=== PATIENT | male | born 1975 | race Caucasian/White ===

== ENCOUNTER 2019-01-24 11:17 | Emergency (ER) | payer MEDICAID, SELFPAY ==
[2019-01-24 11:17] VITALS: BP 141/96; PULSE 69; RESP 16; TEMP 36.6; O2SAT 100; BMI 23.5
--- NOTE | 2019-01-24 12:54 | ED.VISSUMM ---
- ER Visit Summary Date of Service: 01/24/19 Chief Complaint: Medication refill History of Present Illness: The patient is a 43 M with seizures ran out of Lamictal and Keppra he has no symptoms he cannot get in touch with his neurologist and since it is Physical Examination: I will refill his medication he is to call his neurologist tomorrow Impression:Medication refill This note was generated with [employer] dictation software. It may contain incorrect words, spelling, and punctuation that were not noted in review of the chart prior to signing ED Disposition - Plan for ED Patient: Disposition: Home or Assisted Living Prescriptions: Lamotrigine [Lamictal] 25 mg PO DAILY #10 tab levETIRAcetam tablet [Keppra tablet] 500 mg PO BID #20 tab Referrals: Jennifer Bonilla NP-C [Primary Care Provider] - 2 Days () Additional Instructions: Call your neurologist tomorrow
--- NOTE | 2019-01-24 12:58 | ED.DCSUM_ITS ---
- ER Visit Summary Date of Service: 01/24/19 Chief Complaint: Medication refill History of Present Illness: The patient is a 43 M with seizures ran out of Lamictal and Keppra he has no symptoms he cannot get in touch with his neurologist and since it is Physical Examination: I will refill his medication he is to call his neurologist tomorrow Impression:Medication refill This note was generated with [employer] dictation software. It may contain incorrect words, spelling, and punctuation that were not noted in review of the chart prior to signing ED Disposition - Plan for ED Patient: Disposition: Home or Assisted Living Prescriptions: Lamotrigine [Lamictal] 25 mg PO DAILY #10 tab levETIRAcetam tablet [Keppra tablet] 500 mg PO BID #20 tab Referrals: Jennifer Bonilla NP-C [Primary Care Provider] - 2 Days () Additional Instructions: Call your neurologist tomorrow
[2019-01-24 13:09] VITALS: RESP 15
== END 2019-01-24 13:10 | disposition home or self-care (01) ==
PROVIDERS: Emergency Provider Emergency Medicine; Family Provider Nurse Practitioner Adult Health; PCP Nurse Practitioner Adult Health
DX: Z76.0 Encounter for issue of repeat prescription (principal); G40.909 Epilepsy, unspecified, not intractable, without status epilepticus
CPT/HCPCS: 99282

== ENCOUNTER 2020-05-30 15:20 | Emergency (ER) | payer MEDICARE, MEDICAID, SELFPAY ==
[2020-05-30 15:20] VITALS: BP 131/92; PULSE 76; RESP 16; TEMP 36.4; O2SAT 100; BMI 22.7
--- NOTE | 2020-05-30 15:32 | VDLE_ITS ---
Reason For Study: Swelling Procedure LEFT Exam performed portable in ED. GSV is normal. A preliminary report was called and/or faxed CFV is compressible, spontaneous, phasic, to Anil. competent, and demonstrates normal augmentation. FV is compressible, spontaneous, phasic, competent and demonstrates normal augmentation. POP V is compressible, spontaneous, phasic, competent and demonstrates normal augmentation. T/P Trunk is compressible. PTV is compressible. LT PerV is compressible. Interpretation Summary There is no evidence of left lower extremity deep vein thrombosis. Left great saphenous vein appears patent and compressible segmentally. Ordering Physician: Jose Ma Referring Physician: Jennifer Bonilla Performed By: Raven Thapa RVT
--- NOTE | 2020-05-30 16:07 | ED.VIS.GEN ---
History of Present Illness Chief Complaint: Lower Extremity Injury Narrative: 44-year-old male presenting with left leg bruising and swelling. He is postop day #6 for partial knee replacement. He states he injured himself walking his dog which caused the injury to the knee in the first place. He states that he called his doctor's office for an evaluation and they sent him to the emergency room for an ultrasound. Patient does not have any significant pain. His wounds have been clean and dry. Not have any numbness or tingling. Past Medical History - Allergies and Home Meds Allergies/Adverse Reactions: Allergies aspirin Allergy (Verified 05/30/20 15:21) Unknown phenytoin [From Dilantin] Allergy (Verified 05/30/20 15:21) GUMS SWELL UP Primary Care Physician: Jennifer Bonilla NP, COMPUTER SYSTEMS TECHNOLOGY INSTRUCTOR-C [Primary Care Provider] - Past Medical History: - - Anxiety, depression Surgical History: - - Partial knee replacement Lives: Spouse/ Significant Other Smoking Status: Current every day smoker Alcohol: Occasional Drugs: None Review of Systems General: Denies: Chills, Fever, Sweats Eyes: Denies: Visual changes - bilaterally, Diplopia ENT: Denies: Rhinorrhea, Sore throat Cardiovascular: Denies: Chest pain, Palpitations Respiratory: Denies: Dyspnea, Cough, Dyspnea on exertion Gastrointestinal: Denies: Abdominal pain, Nausea, Vomiting, Diarrhea, Melena, Hematochezia Skin: Reports: - - Lower extremity bruising and dependent portions.. Denies: Rash, Abscess Neurological: Denies: Headache, Weakness Physical Exam Vital Signs/Narrative: Vital Signs Temp Pulse Resp BP Pulse Ox 05/30/20 15:20 97.5 F L 76 16 131/92 H 100 Inital Vital Signs reviewed: Yes General: Well nourished, No Acute Distress Head: Normocephalic, Atraumatic Eyes: Perrl, EOMI Neck: Supple, Nontender Cardiovascular: Regular rate, Regular rhythm Abdomen: Soft, Nontender Extremities: - - Swelling to the left lower extremity with bruising and dependent portions of the lower leg and posterior knee. Minimally tender to palpation. Pedal pulses 2+. Wounds are clean dry and intact. No pain with short arc range of motion. Skin: - - Described under extremities Neurological: Alert, Oriented x3 Psychological: Normal affect, Normal Mood Diagnostic/Tx/Re-eval - Medical Decision Making Patient presents with leg swelling and bruising. He is neurovascularly intact. He does not have any sign of infection and his wounds are clean and dry. DVT study performed shows no DVT. Patient given instruction to follow-up with his surgeon. He is given return precautions. Patient stable for discharge at this time. Impression: 1. Postop wound check ED Disposition - Plan for ED Patient: Disposition: Home or Assisted Living Instructions: Post-Op Tips: Knee Referrals: Jennifer Bonilla NP, COMPUTER SYSTEMS TECHNOLOGY INSTRUCTOR-C [Primary Care Provider] -
== END 2020-05-30 16:47 | disposition home or self-care (01) ==
LOC: ED 16:15
PROVIDERS: Emergency Provider Student in an Organized Health Care Education/Training Program; PCP Nurse Practitioner Adult Health
DX: Z48.00 Encounter for change or removal of nonsurgical wound dressing (principal); F17.200 Nicotine dependence, unspecified, uncomplicated; F33.9 Major depressive disorder, recurrent, unspecified
CPT/HCPCS: 93971; 99282

== ENCOUNTER 2020-09-17 08:18 | Emergency (ER) | payer MEDICARE, MEDICAID, SELFPAY ==
[2020-09-17 08:19] VITALS: BP 134/87; PULSE 82; RESP 16; TEMP 36.1; O2SAT 97; BMI 22.0
--- NOTE | 2020-09-17 08:45 | RAD_ITS ---
STUDY: X-RAY - LEFT ANKLE REASON FOR EXAM: Male, 44 years old. INJURY X 6 DAYS. STILL HAVING PAIN LATERAL SIDE TECHNIQUE: 3 view(s) of the ankle. COMPARISON: None. FINDINGS: Normal visualized distal tibia and fibula. Normal medial and lateral malleoli. Normal tibiotalar articulation and ankle mortise. Normal visualized talus and calcaneus. The visualized subtalar, talonavicular, calcaneocuboid and tarsal articulations are normal. The soft tissue structures are unremarkable. RAD/Ankle min 3 Views IMPRESSION: Normal x-ray examination of the ankle. Electronically Signed: Zackary Segovia MD at 9:07 EST , Service support ,
--- NOTE | 2020-09-17 09:34 | ED.DCSUM_ITS ---
History of Present Illness Chief Complaint: Lower Extremity Injury Narrative: Patient presenting secondary to an ankle injury. Patient states that he twisted his ankle a week ago and it still hurts. Pain is worse with ambulation as well as range of motion. Pain is aching and mild. Patient denies any other injuries. Review of systems otherwise negative. Past Medical History - Allergies and Home Meds Allergies/Adverse Reactions: Allergies aspirin Allergy (Verified 09/17/20 08:19) Unknown phenytoin [From Dilantin] Allergy (Verified 09/17/20 08:19) GUMS SWELL UP Primary Care Physician: Jennifer Bonilla [employer], [employer] [Primary Care Provider] - Prior records reviewed: Yes Surgical History: - - Partial knee replacement Smoking Status: Former smoker Alcohol: None Drugs: None Review of Systems All systems negative except as indicated General: Denies: Chills, Fever, Sweats Eyes: Denies: Visual changes - bilaterally, Diplopia ENT: Denies: Rhinorrhea, Sore throat Cardiovascular: Denies: Chest pain, Palpitations Respiratory: Denies: Dyspnea, Cough, Dyspnea on exertion Gastrointestinal: Denies: Abdominal pain, Nausea, Vomiting, Diarrhea, Melena, Hematochezia Genitourinary: Denies: Dysuria, Hematuria, Frequency Musculoskeletal: Reports: Extremity Pain Skin: Denies: Rash, Wounds Neurological: Denies: Headache, Weakness, Numbness Physical Exam Vital Signs/Narrative: Vital Signs Temp Pulse Resp BP Pulse Ox 09/17/20 08:19 96.9 F L 82 16 134/87 H 97 - Extremity Exam Left Ankle: - - Pain on palpation of the lateral malleolus, minimal swelling noted. Normal range of motion. Normal sensation and distal pulses. No pain over the fifth metatarsal head, no pain of the proximal fibular head. General: Well nourished, Well developed Head: Normocephalic, Atraumatic Eyes: Perrl, EOMI ENT: No Trauma, Moist Mucous Membranes Neck: Nontender, Full ROM Cardiovascular: Regular rate, Regular rhythm, No murmurs Respiratory: No distress, CTA bilaterally, Chest nontender Skin: Normal color, No rash Neurological: Alert, Oriented x3, Cranial nerves II-XII grossly intact, Normal Strength, Normal Sensation Diagnostic/Tx/Re-eval Clinical Impression(s) from Imaging Studies Ankle X-Ray 09/17/20 08:45 IMPRESSION: Normal x-ray examination of the ankle. Electronically Signed: Zackary Segovia MD at 9:07 EST , Service support , - Medical Decision Making Patient presented with an ankle injury. 3 view of the left ankle by my personal review as well as radiology is negative for acute fracture. Patient was recommended conservative management and exercises for an ankle sprain. ED Disposition - Plan for ED Patient: Disposition: Home or Assisted Living Diagnosis: Left ankle sprain Instructions: ED Sprain Ankle W X Ray Referrals: Jennifer Bonilla NP, [employer] [Primary Care Provider] - As Needed
[2020-09-17 10:19] VITALS: PULSE 84; RESP 16; O2SAT 97
== END 2020-09-17 10:21 | disposition home or self-care (01) ==
PROVIDERS: Emergency Provider Emergency Medicine; PCP Nurse Practitioner Adult Health
DX: S93.402A Sprain of unspecified ligament of left ankle, initial encounter (principal); X50.1XXA Overexertion from prolonged static or awkward postures, initial encounter; Y92.9 Unspecified place or not applicable; Y99.9 Unspecified external cause status; Z87.891 Personal history of nicotine dependence; Z88.6 Allergy status to analgesic agent
CPT/HCPCS: 73610; 99282

== ENCOUNTER 2021-11-12 14:16 | Emergency (ER) | payer MEDICARE, MEDICAID, SELFPAY ==
[2021-11-12 14:17] VITALS: BP 136/87; PULSE 81; RESP 16; TEMP 36.4; O2SAT 97; BMI 21.6
--- NOTE | 2021-11-12 15:21 | EX.ED.DYSGE1 ---
HPI History of Present Illness Chief Complaint: Rash Informant: patient Onset/Context/Timing Onset: Month(s) (3) Context: Gradual Onset Timing: Continuous Quality: Itching Location: Lower jaw Worsened by: Nothing Relieved by: Shower Narrative Narrative: Patient presents with a rash to his lower jaw that has been constant for the past 3 months. Patient states it came on gradually. Patient states it began after he was wrestling with his brother who has a similar rash. Patient admits to some itching to the area. Patient states it is better whenever he takes a shower. Patient denies any difficulty breathing or difficulty swallowing. Patient denies any discharge or drainage. Patient denies any fevers or chills. [facility] Medical History (Updated 11/12/21 @ 15:[address] Leroy Moore DO) Seizure disorder Home Medications amantadine HCl 100 mg PO BID 10/02/16 [History Last Taken 03/09/17] aripiprazole [Abilify] 15 mg PO DAILY 10/02/16 [History Last Taken 03/09/17] lamotrigine 50 mg PO BID 10/02/16 [History Last Taken 03/09/17] levetiracetam 500 mg PO BID 10/02/16 [History Last Taken 03/09/17] trazodone 150 mg PO QHS PRN 10/02/16 [History Last Taken 03/08/17] sertraline 100 mg PO DAILY 03/09/17 [History Last Taken 03/09/17] quetiapine 50 mg PO QHS 05/30/20 [History Last Taken Unknown] clindamycin phosphate 1 applic TOPICAL BID #30 g 11/12/21 [Rx Last Taken Unknown] Allergy/AdvReac Type Severity Reaction Status Date / Time aspirin Allergy Unknown Verified 11/12/21 14:17 phenytoin [From Dilantin] Allergy GUMS Verified 11/12/21 14:17 SWELL UP Surgical History no surgical history no surgical history Social History Smoking Status: Current every day smoker tobacco type: cigarettes ROS ROS ED Constitutional Constitutional ED: Denies chills or fever(s) Eyes Eyes: Denies blurry vision or change in vision ENT ENT ED: Denies rhinorrhea or sore throat Cardiovascular Cardiovascular: Denies chest pain or palpitations Respiratory/Chest Respiratory/Chest: Denies cough or dyspnea Gastrointestinal Gastrointestinal: Denies nausea or vomiting Genitourinary Genitourinary ED: Denies dysuria or hematuria Musculoskeletal Musculoskeletal: Denies back pain or neck pain Integumentary Reports rash; Denies abscess Neurologic Neurologic: Reports headache(s); Denies weakness Allergic/Immunologic Allergic/Immunologic ED: Denies mouth swelling or urticaria EXAM Physical Exam Const Vital Signs: 11/12/21 14:17 Temperature 97.6 F L Temperature Source Temporal Pulse Rate 81 Respiratory Rate 16 Blood Pressure 136/87 H Blood Pressure Mean 103 Pulse Ox 97 Oxygen Delivery Method Room Air Positive well nourished and well developed General Appearance ED: well developed and NAD HEENT Reports moist mucous membranes Neck supple and no JVD Resp normal respiratory effort and clear to auscultation bilaterally Cardio regular rate, regular rhythm and no murmurs Neuro oriented x3, CN's II-XII intact bilaterally and no sensory deficits noted Sensorium / Orientation: alert Motor Exam: strength 5/5 throughout Psych mental status grossly normal Skin Skin Narrative: There is a small erythematous rash along the lower jaw. It crosses the midline. There are small pustules noted. There is mild erythema. There is no tenderness. There is no active discharge or drainage noted. MDM MDM MDM Narrative Medical decision making narrative: Patient was advised that this rash looks like a folliculitis rash. Given a prescription for clindamycin gel. Patient was instructed to follow-up with a primary care physician in 5 to 7 days. Patient understood and was agreeable with the plan. All questions were answered. Discharge Plan Triage Chief Complaint: Rash ED Provider: Leroy Moore Dx/Rx/DC Orders Clinical Impression: Folliculitis Instructions: ED Folliculitis Prescriptions: New clindamycin phosphate 1 % gel 1 applic topical BID Qty: 30 RF: 0 No Action levetiracetam 500 MG tablet 500 mg PO BID RF: 0 amantadine HCl 100 MG capsule 100 mg PO BID RF: 0 trazodone 100 MG tablet 150 mg PO QHS PRN (Reason: Insomnia) RF: 0 aripiprazole [Abilify] 15 MG tablet 15 mg PO DAILY RF: 0 lamotrigine 50 MG tablet,disintegrating 50 mg PO BID RF: 0 sertraline 100 MG tablet 100 mg PO DAILY RF: 0 quetiapine 50 MG tablet 50 mg PO QHS RF: 0 Primary Care Provider: Jennifer Bonilla NP Referrals: Jennifer Watkins [NON-STAFF] - 5-7 Days Jennifer Bonilla NP, [employer] APPRAISER-C [Primary Care Provider] - Disposition Disposition: Home, Self Care
--- NOTE | 2021-11-12 15:30 | CM.ED ---
Social Work Consult: Resources Referral source: Dr. Moore. Met with patient in room. Introduced self and director of social media marketing role. Patient agreeable to speak with this director of social media marketing. Patient reports to currently be going through a divorce and to now be homeless. Patient states to be staying at the [facility] and they are helping me with housing. Patient reports substance abuse history of meth and to currently smoke tobacco and use Marijuana. Patient states to have recently lost my kids in last 2020 due to meth use and not getting the kids medically taken care of. Patient reports that [facility] have been working with patient. Patient denies mental health history of suicidal thoughts, plans, intents. Patient states to be discouraged with current situation. Patient states desire to get out of town and stay with patient mother but still working on transportation. Patient reports to be on disability due to seizures. Patient states to be able to have some money in November. This director of social media marketing provided support and active listening. This director of social media marketing encouraged patient to keep following up with [facility] on housing options and support. Patient also reports to be aware of [facility] and denies substance abuse resources/needs. Patient thanked this director of social media marketing. Dr. Moore updated on above. PLAN: Discharge to the community. Antonia MONTIEL, MARY
== END 2021-11-12 15:49 | disposition home or self-care (01) ==
PROVIDERS: Emergency Provider Emergency Medicine; PCP Nurse Practitioner Adult Health; Visit Provider Emergency Medicine
DX: L73.9 Follicular disorder, unspecified (principal); G40.909 Epilepsy, unspecified, not intractable, without status epilepticus; F17.210 Nicotine dependence, cigarettes, uncomplicated
CPT/HCPCS: 99282

== ENCOUNTER 2023-12-10 15:18 | Emergency (ER) | payer MEDICARE, MEDICAID, SELFPAY ==
[2023-12-10 15:19] VITALS: BP 122/92; PULSE 80; RESP 18; TEMP 36.3; O2SAT 95; BMI 23.1
--- NOTE | 2023-12-10 15:35 | RAD_ITS ---
STUDY: X-RAY - LEFT WRIST REASON FOR EXAM: Male, 48 years old. fall TECHNIQUE: 3 view(s) of the wrist were obtained. COMPARISON: None. FINDINGS: Normal visualized distal radius and ulna. Normal radiocarpal articulation. Normal distal radioulnar articulation. Normal carpal bones. Normal carpal articulations. Normal carpometacarpal articulation of the thumb. Normal second through fifth carpometacarpal articulations. Normal visualized metacarpal bones. The soft tissue structures are unremarkable. RAD/Wrist min 3 Views IMPRESSION: Normal x-ray examination of the wrist. Electronically Signed: Kunal Rojas MD at 17:05 EDT ,
--- NOTE | 2023-12-10 18:57 | EX.ED.UPPERE ---
HPI History of Present Illness HPI Narrative: Patient presents with left wrist injury that began after a fall today. Patient states he fell out of the top bunk while he is staying at the [facility] [place] [facility] [place]. Patient landed on the volar aspect of his left wrist. Patient states it is worse with any movement. Patient states it is better with rest. Patient describes his pain as aching. Patient denies any paresthesias or weakness. Patient denies any head injury or loss of consciousness. Patient denies any other injuries. Chief Complaint: Upper Extremity Injury Informant: patient Occured/Mechanism Mechanism/Context: Yes fall Onset/Context/Timing Onset: Today Context: Sudden Onset Timing: Continuous Quality of Pain: Aching Location: Left wrist Worsened by: Movement Relieved by: Rest Associated Symptoms Associated Symptoms: Negative for Parasthesia, Weakness or Loss of Funtion [facility] Medical History Seizure disorder Home Medications amantadine HCl 100 mg capsule 100 mg PO BID 10/02/16 [History Last Taken 03/09/17] aripiprazole 15 mg tablet (Abilify) 15 mg PO DAILY 10/02/16 [History Last Taken 03/09/17] lamotrigine 50 mg disintegrating tablet 50 mg PO BID 10/02/16 [History Last Taken 03/09/17] levetiracetam 500 mg tablet 500 mg PO BID 10/02/16 [History Last Taken 03/09/17] trazodone 100 mg tablet 150 mg PO QHS PRN Insomnia 10/02/16 [History Last Taken 03/08/17] sertraline 100 mg tablet 100 mg PO DAILY 03/09/17 [History Last Taken 03/09/17] quetiapine 50 mg tablet 50 mg PO QHS 05/30/20 [History Last Taken Unknown] clindamycin phosphate 1 % topical gel 1 applic topical BID #30 grams 11/12/21 [Rx Last Taken Unknown] Allergy/AdvReac Type Severity Reaction Status Date / Time aspirin Allergy Unknown Verified 12/10/23 15:19 phenytoin [From Dilantin] Allergy GUMS Verified 12/10/23 15:19 SWELL UP Surgical History no surgical history no surgical history Social History Smoking Status: Current every day smoker tobacco type: cigarettes ROS ROS ED Constitutional Constitutional ED: Denies chills or fever(s) Eyes Eyes: Denies blurry vision or change in vision ENT ENT ED: Denies rhinorrhea or sore throat Cardiovascular Cardiovascular: Denies chest pain or palpitations Respiratory/Chest Respiratory/Chest: Denies cough or dyspnea Gastrointestinal Gastrointestinal: Denies nausea or vomiting Genitourinary Genitourinary ED: Denies dysuria or hematuria Musculoskeletal Musculoskeletal: Denies back pain or neck pain Integumentary Denies abscess or rash Neurologic Neurologic: Denies headache(s) or weakness Allergic/Immunologic Allergic/Immunologic ED: Denies mouth swelling or urticaria EXAM Physical Exam Const Vital Signs: 12/10/23 15:19 Temperature 97.4 F L Temperature Source Temporal Pulse Rate 80 Respiratory Rate 18 Blood Pressure 122/92 H Blood Pressure Mean 102 Pulse Ox 95 Oxygen Delivery Method Room Air Positive well nourished and well developed General Appearance ED: well developed and NAD Neck full ROM and supple Extremity Extremity Narrative: There is tenderness with mild edema and ecchymosis over the volar aspect of the left wrist. There is no obvious deformity noted. Range of motion was limited in all motions of the left wrist and left thumb secondary to incision. Sensation was intact to light touch in the radial, median, and ulnar areas. Strength is 5/5 in the radial, median, and ulnar areas. Radial pulses sectional bilaterally. Capillary refill was less than 2 seconds in all digits. Neuro oriented x3, CN's II-XII intact bilaterally, moves all extremities, no focal motor deficits and no sensory deficits noted Sensorium / Orientation: alert Motor Exam: strength 5/5 throughout MDM MDM MDM Narrative Medical decision making narrative: Differential diagnosis includes fracture, sprain, and contusion. X-rays of the left wrist will be obtained to assess for fracture. X-ray Radiography Diagnostic Testing: Clinical Impression(s) from Imaging Studies Wrist X-Ray 12/10/23 15:35 IMPRESSION: Normal x-ray examination of the wrist. Electronically Signed: Kunal Rojas MD at 17:05 EDT Reading Location ID and State: [facility] / [place] Tel , Service support , X-rays of the left wrist were obtained. There are 3 views. On my independent demonstrations, there is no pain fracture or dislocation noted. Radiologist also interpreted the x-rays and agrees. Treatment and Re-Evaluation Narrative: Smoking cessation was discussed. Patient was advised of his findings. Patient was given a cock up wrist splint. Patient was instructed to take Tylenol or ibuprofen as needed for pain. Patient was instructed use ice to the area. Patient was instructed to follow-up with his primary care physician in 5 to 7 days. Patient states she also has an appointment with his orthopedist for a right wrist injury. Patient was instructed to follow-up with his orthopedist for this as well. Patient also states that his left knee gives out from a chronic injury occasionally. Patient was requesting a knee brace. Patient was advised to be only have knee immobilizers and this would keep his knee straight and into his walking even further. Patient was instructed to be careful when he walks. Patient was advised to get an [id number] knee brace that has hinges so he can flex his knee when he walks. Patient understood and was agreeable with the plan. All questions were answered. Discharge Plan Triage Chief Complaint: Upper Extremity Injury ED Provider: Leroy Moore Dx/Rx/DC Orders Clinical Impression: Tobacco use disorder, Fall, Contusion of left wrist, initial encounter Instructions: ED Contusion, Upper Extremity Prescriptions: No Action levetiracetam 500 MG tablet 500 mg PO BID Patient Comments: SEIZURES amantadine HCl 100 MG capsule 100 mg PO BID trazodone 100 MG tablet 150 mg PO QHS PRN (Reason: Insomnia) Patient Comments: SLEEP aripiprazole [Abilify] 15 MG tablet 15 mg PO DAILY lamotrigine 50 MG tablet,disintegrating 50 mg PO BID sertraline 100 MG tablet 100 mg PO DAILY Patient Comments: DEPRESSION quetiapine 50 MG tablet 50 mg PO QHS clindamycin phosphate 1 % gel 1 applic topical BID Qty: 30 0RF Primary Care Provider: Reyna Dunne Referrals: Reyna Dunne, [employer]CHNICIAN-[employer] [Primary Care Provider] - 3-5 Days Disposition Disposition: Home, Self Care
[2023-12-10 19:19] VITALS: BP 138/101; PULSE 72; RESP 16; O2SAT 98
[2023-12-10 19:26] VITALS: BP 138/101; PULSE 72; RESP 18; TEMP 36.7; O2SAT 98
[2023-12-10] MEDS: Ibuprofen 200 MG Tablet 800 MG PO (19:37)
== END 2023-12-10 19:39 | disposition home or self-care (01) ==
PROVIDERS: Emergency Provider Emergency Medicine; PCP Nurse Practitioner Family; Visit Provider Emergency Medicine
DX: S60.212A Contusion of left wrist, initial encounter (principal); G40.909 Epilepsy, unspecified, not intractable, without status epilepticus; F17.210 Nicotine dependence, cigarettes, uncomplicated; W06.XXXA Fall from bed, initial encounter; Y92.89 Other specified places as the place of occurrence of the external cause
CPT/HCPCS: 73110; 99283